=== PATIENT | male | born 1960 | race Caucasian/White ===

== ENCOUNTER 2017-01-25 14:02 | Day surgery (SDC) | payer BC ==
[2017-01-23 11:10] VITALS: BMI 26.4
[2017-01-25] MEDS ORDERED: EPINEPHrine 1:1,000 1 MG/1 ML - 30ML VIAL (INJECTION) ONE (14:36)
[2017-01-25] MEDS ORDERED: MIDAZOLAM HCL 2 MG/2 ML SINGLE DOSE VIAL ONE (14:44)
[2017-01-25] MEDS ORDERED: ROPIVACAINE HCL 0.5% 30ML VIAL ONE (14:44)
[2017-01-25] MEDS ORDERED: DEXAMETHASONE SOD PHOSPHATE/PF 10 MG/ML SDV ONE (14:44)
[2017-01-25] MEDS ORDERED: ePHEDrine SULFATE 50 MG/1 ML AMPULE ONE ×2 (16:19→16:21)
[2017-01-25] MEDS ORDERED: ONDANSETRON 4 MG/2 ML VIAL IVPUSH PRN (17:06)
[2017-01-25] MEDS ORDERED: oxyCODONE HCL 5 MG TABLET PO PRN (17:06)
[2017-01-25] MEDS ORDERED: LACTATED RINGERS SOLUTION 1,000 ML IV SCH (17:15)
[2017-01-25 18:06] VITALS: TEMP 97.6
[2017-01-25 18:34] VITALS: BP 141/86; PULSE 83
--- NOTE | 2017-01-31 12:28 | OP ---
DATE OF OPERATION: 01/25/2017 PREOPERATIVE DIAGNOSIS: Left shoulder rotator cuff tear. POSTOPERATIVE DIAGNOSES: 1. Left shoulder full-thickness supraspinatus rotator cuff tear. 2. Left shoulder partial anterior labral tear. 3. Left shoulder subacromial impingement. OPERATIVE PROCEDURE: 1. Left shoulder arthroscopic rotator cuff repair. 2. Extensive debridement of left glenohumeral joint. SURGEON: Dutch Mejia MD ASSOCIATE TECHNICIAN: ROM Cam ANESTHESIA: Regional. COMPLICATIONS: None. ESTIMATED BLOOD LOSS: Minimal. INDICATIONS FOR PROCEDURE: The patient is a 56-year-old male with the above finding indicated for operative treatment. Risks, benefits, and alternatives were discussed with the patient at length. Proper informed consent was obtained. DESCRIPTION OF PROCEDURE: After proper identification of patient and correct operative site, the patient was brought to the operative room and placed prone on the table with prominences well padded. Regional anesthesia was given. The patient was placed in the beach chair position, and all points of contact were well padded with in line cervical position maintained throughout the procedure. The left upper extremity was prepped and draped in the usual sterile fashion. Arthroscope was introduced through a posterior portal. Accessory portals were later made, and all portals were made with a skin incision only with blunt dissection down the joint capsule. Glenohumeral joint was observed and found to have mild synovitis. This was debrided with mechanical shaver. A partial labral tear was found anteriorly and inferiorly alongside a small chondral injury to the anteroinferior aspect of the glenoid. There was no detachment of the labrum. This was debrided with mechanical shaver. Mild fraying of the superior labrum was also noted, but there was no evidence of detachment of the biceps tendon. The biceps tendon was normal in appearance. The axillary pouch was free of loose bodies. Subscapularis was intact. Infraspinatus was intact. Supraspinatus was observed and found to have a full-thickness 1-1/2-cm anterior to posterior dimensions full-thickness supraspinatus tear with about 1 cm of retraction. This was crescent-shaped type tear. This was mobilized and debrided off the greater tuberosity. Arthroscope was introduced to the subacromial space where a mild bursitis was noted. This was debrided with mechanical shaver. A small spur was noted, and debridement was performed, and acromioplasty was performed. The rotator cuff was then observed from the bursal surface and found to be as expected from the articular view, and it was able to be easily mobilized to the greater tuberosity and was repaired with Arthrex SpeedBridge-type repair set with 2 medial SwiveLoc anchors and 2 lateral SwiveLoc anchors with crossing FiberTape sutures. This provided a secure, stable repair of the rotator cuff with no tension. The wounds were then irrigated with copious amounts of normal saline and repaired with 5-0 nylon sutures. Sterile dressing and a sling were placed. Ice pack was placed. The patient was reversed from anesthesia and brought to the recovery room in stable condition. Christo Zamudio, the physician assistant certified, was integral throughout the procedure. The procedure could not have been performed without a skilled operative physician assistant certified. DUTCH MEJIA M.D. [id number]
== END 2017-01-25 18:30 | disposition home or self-care (01) ==
LOC: FASU 14:02
PROVIDERS: ATTEND Orthopaedic Surgery Hand Surgery
PROC: 0RBK4ZZ Excision of Left Shoulder Joint, Percutaneous Endoscopic Approach (ICD-10-PCS; 2017-01-25)
PROC: 0LB24ZZ Excision of Left Shoulder Tendon, Percutaneous Endoscopic Approach (ICD-10-PCS; principal; 2017-01-25 15:33)
DX: M75.122 Complete rotator cuff tear or rupture of left shoulder, not specified as traumatic (principal); M24.112 Other articular cartilage disorders, left shoulder; M75.42 Impingement syndrome of left shoulder
CPT/HCPCS: 94760